=== PATIENT | male | born 1965 | race Caucasian/White ===

== ENCOUNTER 2019-11-19 08:25 | Emergency (ER) | payer BC, OTHER ==
[~2019-11-19] VITALS: Ht 182.9 cm; Wt 95.3 kg
[2019-11-19 08:38] VITALS: BP 141/93
== END 2019-11-19 10:44 | disposition home or self-care (01) ==
LOC: ER 08:25
DX: J40 Bronchitis, not specified as acute or chronic (principal); F41.9 Anxiety disorder, unspecified; F17.210 Nicotine dependence, cigarettes, uncomplicated; Z20.828 Contact with and (suspected) exposure to other viral communicable diseases
CPT/HCPCS: 71045; 87635